=== PATIENT | female | born 1965 | race Caucasian/White ===

== ENCOUNTER 2025-05-30 03:26 | Inpatient (IN) | payer OTHER ==
[2025-05-30] VITALS (8 sets, daily range): BP systolic 104–130; BP diastolic 46–61
[~2025-05-30] VITALS: Ht 165.1 cm; Wt 108.0 kg
[2025-05-30] MEDS ORDERED: TOPROL XL25 MG PO (03:30)
[2025-05-30] MEDS ORDERED: OMEPRAZOLE40 MG PO (03:30)
[2025-05-30] MEDS ORDERED: MELOXICAM15 MG PO (03:30)
[2025-05-30] MEDS ORDERED: Ondansetron4 MG PO (03:30)
[2025-05-30] MEDS ORDERED: NORVASC5 MG PO (03:31)
[2025-05-30] MEDS ORDERED: REMERON SOLTAB15 MG PO (03:31)
[2025-05-30] MEDS ORDERED: LIPITOR10 MG PO (03:32)
[2025-05-30] MEDS ORDERED: COL-RITE100 M1 PO (03:32)
[2025-05-30] MEDS ORDERED: WELLBUTRIN SR150 MG PO (03:33)
[2025-05-30] MEDS ORDERED: BACLOFEN20 M1 PO (03:34)
[2025-05-30] MEDS ORDERED: SINGULAIR10 M1 PO (03:34)
[2025-05-30] MEDS ORDERED: SODIUM CHLORIDE 0.9% 1,000 ML IV ONE ×2 (04:45→15:35)
[2025-05-30] MEDS ORDERED: Ondansetron Hydrochloride 4 MG/2 ML VIAL IV ONE (04:45)
[2025-05-30 05:17] LABS: ACT PARTIAL THROMBO TIME 34.7 SECONDS (20.0-32.1)
[2025-05-30 05:39] LABS: BUN 42.0 mg/dl (9-23); SGPT/ALT 112.0 U/L (5-49)
[2025-05-30 06:27] LABS: MEAN CELL VOLUME 79.5 fl (81.0-99.0); MEAN CORPUSCULAR HGB 24.7 pg (27.0-31.0); MEAN PLATELET VOLUME 11.9 fl (9.6-12.3); NUCLEATED RED BLOOD CELL 0.0 % (0.0-0.0); NUCLEATED RED BLOOD CELL 0.0 10*3/uL (0.0-0.0); PLATELET COUNT AUTOMATED 88 10*3/uL (130-400); RED CELL DISTRI WIDTH 15.4 % (0-14.5)
[2025-05-30 06:37] LABS: MANUAL DIFF REFLEX YES
[2025-05-30 06:43] LABS: BASOPHILS 1 % (0-1)
[2025-05-30 06:44] LABS: PLATELET SUFFICIENCY LOW (NORMAL)
[2025-05-30 08:05] LABS: BILIRUBIN 2+ (Negative); BLOOD 2+ (Negative); CLARITY Cloudy (Clear); COLOR Dark Yellow (Yellow); KETONE Trace (Negative); LEUKO ESTERASE Trace (Negative); NITRITE Negative (Negative); PH 5.5 (4.5-8.0); SPECIFIC GRAVITY 1.020 (1.001-1.030); UROBILINOGEN 2.0 E.U./dl (0.0-1.0)
[2025-05-30 08:18] LABS: BACTERIA 4+; EPITHELIAL CELLS 16-20; RBC 31-40 rbc/hpf (0-2)
[2025-05-30] MEDS ORDERED: CIPROFLOXACIN 200 ML IV ONE (11:30)
[2025-05-30] MEDS ORDERED: POTASSIUM CHLORIDE IN WATER 100 ML IV SCH ×2 (12:00→18:00)
[2025-05-30 12:22] LABS: BUN 34.0 mg/dl (9-23); SGPT/ALT 103.0 U/L (5-49)
[2025-05-30] MEDS ORDERED: SODIUM CHLORIDE 0.9% 500 ML IV ONE (13:36)
[2025-05-30] MEDS ORDERED: BISACODYL 5 MG TAB PO PRN (13:45)
[2025-05-30] MEDS ORDERED: ACETAMINOPHEN 325 MG TAB PO PRN (13:45)
[2025-05-30] MEDS ORDERED: Ondansetron Hydrochloride 4 MG/2 ML VIAL IV PRN (13:45)
[2025-05-30] MEDS ORDERED: ACETAMINOPHEN 650 MG SUPP R PRN (13:45)
[2025-05-30] MEDS ORDERED: BISACODYL 10 MG SUPP R PRN (13:45)
[2025-05-30] MEDS ORDERED: Acetaminophen/Hydrocodone 5 MG/325 MG TABLET PO PRN (13:45)
[2025-05-30] MEDS ORDERED: Technetium Tc 99M Mebrofenin 1 KIT KIT IV SCH (16:50)
[2025-05-30] MEDS ORDERED: SINCALIDE 5 MCG VIAL IV SCH (16:50)
[2025-05-30] MEDS ORDERED: BACLOFEN 10 MG TAB PO PRN (17:30)
[2025-05-30] MEDS ORDERED: MIRTAZAPINE15 M2 PO (17:43)
[2025-05-30 17:52] LABS: BUN 38.0 mg/dl (9-23); SGPT/ALT 93.0 U/L (5-49)
[2025-05-30] MEDS ORDERED: HEPARIN SODIUM 5,000 UNIT/ML VIAL SC SCH (22:00)
[2025-05-30] MEDS ORDERED: Mirtazapine 15 MG TAB PO SCH (22:00)
[2025-05-31] VITALS: BP 103/54
[2025-05-31 07:04] LABS: MEAN CELL VOLUME 80.0 fl (81.0-99.0); MEAN CORPUSCULAR HGB 24.8 pg (27.0-31.0); NUCLEATED RED BLOOD CELL 0.0 % (0.0-0.0); NUCLEATED RED BLOOD CELL 0.0 10*3/uL (0.0-0.0); PLATELET COUNT AUTOMATED 72 10*3/uL (130-400); RED CELL DISTRI WIDTH 16.1 % (0-14.5)
[2025-05-31 07:07] LABS: MANUAL DIFF REFLEX YES
[2025-05-31 07:14] LABS: VITAMIN D, 25-HYDROXY 34.2 ng/mL (30-100)
[2025-05-31 07:22] LABS: BUN 41 mg/dl (9-23); FREE T4 1.51 ng/dl (0.89-1.76); SGPT/ALT 82 U/L (5-49)
[2025-05-31 07:23] LABS: LDL CHOLESTEROL 61 mg/dL (9-159)
[2025-05-31 07:45] LABS: PLATELET SUFFICIENCY LOW (NORMAL)
[2025-05-31 08:00] VITALS: BP 110/62
[2025-05-31] MEDS ORDERED: POTASSIUM CHLORIDE 20 MEQ TAB PO ONE (09:40)
[2025-05-31] MEDS ORDERED: CIPROFLOXACIN 200 ML IV SCH (10:00)
[2025-05-31] MEDS ORDERED: METOPROLOL SUCCINATE XR 25 MG TAB PO SCH (10:00)
[2025-05-31] MEDS ORDERED: ATORVASTATIN CALCIUM 10 MG TAB PO SCH (10:00)
[2025-05-31] MEDS ORDERED: POTASSIUM CHLORIDE 20 MEQ TAB ONE (10:14)
[2025-05-31] MEDS ORDERED: POTASSIUM CHLORIDE 20 MEQ in Lactated Ringer's Solution 1,000 ML IV SCH (11:45)
[2025-05-31 12:00] VITALS: BP 115/61
[2025-05-31 14:22] LABS: BUN 43.0 mg/dl (9-23)
[2025-05-31 16:00] VITALS: BP 100/47
[2025-05-31 18:20] LABS: BUN 45.0 mg/dl (9-23)
[2025-05-31 20:00] VITALS: BP 105/80
[2025-05-31] MEDS ORDERED: CALAMINE 120 ML BOT T ONE (21:35)
[2025-05-31] MEDS ORDERED: diphenhydrAMINE hydrochloride 50 MG/ML VIAL IV ONE (21:35)
[2025-06-01 00:30] VITALS: BP 123/42
[2025-06-01 06:13] LABS: MEAN CELL VOLUME 79.7 fl (81.0-99.0); MEAN CORPUSCULAR HGB 24.2 pg (27.0-31.0); NUCLEATED RED BLOOD CELL 0.0 10*3/uL (0.0-0.0); NUCLEATED RED BLOOD CELL 0.4 % (0.0-0.0); PLATELET COUNT AUTOMATED 74 10*3/uL (130-400); RED CELL DISTRI WIDTH 16.7 % (0-14.5)
[2025-06-01 06:36] LABS: BUN 47.0 mg/dl (9-23); SGPT/ALT 79.0 U/L (5-49)
[2025-06-01] MEDS ORDERED: SINCALIDE IV ONE (07:20)
[2025-06-01] MEDS ORDERED: SODIUM CHLORIDE 0.9% IV ONE (07:20)
[2025-06-01 08:00] VITALS: BP 142/76
[2025-06-01 08:16] LABS: MANUAL DIFF REFLEX YES
[2025-06-01 08:22] LABS: PLATELET SUFFICIENCY LOW (NORMAL); VACUOLATION OF NEUTROPHILS SLIGHT
[2025-06-01 12:00] VITALS: BP 178/72
[2025-06-01] MEDS ORDERED: diazePAM 10 MG/2 ML SYR IV ONE (14:15)
[2025-06-01] MEDS ORDERED: SODIUM CHLORIDE 0.9% 1,000 ML IV SCH (14:15)
[2025-06-01 16:00] VITALS: BP 163/56
[2025-06-01] MEDS ORDERED: diphenhydrAMINE hydrochloride 25 MG CAP PO ONE (19:15)
[2025-06-01 20:00] VITALS: BP 112/46
[2025-06-01] MEDS ORDERED: METOPROLOL SUCC25 M2 PO (23:54)
[2025-06-02] VITALS: BP 112/50
== END 2025-06-02 01:24 | disposition short-term general hospital (02) | DRG 871 ==
LOC: ED 03:26 → 5E 11:33 → EDHOLD 11:33 → 5E 16:44
PROVIDERS: Emergency Medicine; Nurse Practitioner Family; Student in an Organized Health Care Education/Training Program; ADMIT Internal Medicine; ATTEND Internal Medicine
DX: A41.9 Sepsis, unspecified organism (principal); N17.0 Acute kidney failure with tubular necrosis; E87.1 Hypo-osmolality and hyponatremia; N30.00 Acute cystitis without hematuria; E78.00 Pure hypercholesterolemia, unspecified; I10 Essential (primary) hypertension; K21.9 Gastro-esophageal reflux disease without esophagitis; F32.A Depression, unspecified; E87.6 Hypokalemia; R74.01 Elevation of levels of liver transaminase levels; D50.9 Iron deficiency anemia, unspecified; D69.6 Thrombocytopenia, unspecified; E87.8 Other disorders of electrolyte and fluid balance, not elsewhere classified; K52.9 Noninfective gastroenteritis and colitis, unspecified; E88.09 Other disorders of plasma-protein metabolism, not elsewhere classified; R65.20 Severe sepsis without septic shock; K81.1 Chronic cholecystitis; Z88.0 Allergy status to penicillin